=== PATIENT | female | born 1975 | race Caucasian/White ===

== ENCOUNTER 2017-03-22 16:36 | Emergency (ER) | payer SELFPAY | END 2017-03-22 17:30 | disposition home or self-care (01) | LOC: ER 16:36 | DX: G43.809 Other migraine, not intractable, without status migrainosus (principal); R20.2 Paresthesia of skin; R47.01 Aphasia; E03.9 Hypothyroidism, unspecified; Z86.718 Personal history of other venous thrombosis and embolism; Z91.14 Patient's other noncompliance with medication regimen; E89.0 Postprocedural hypothyroidism | CPT/HCPCS: 36415; 80307; 96365; 96366; 96375; G0480; J1100; J1200; J1885; J2765 ==